=== PATIENT | female | born 1995 | race Caucasian/White ===

== ENCOUNTER 2016-09-04 11:32 | Emergency (ER) | payer BC, OTHER ==
[~2016-09-04] VITALS: Ht 157.5 cm; Wt 81.6 kg
[~2016-09-04 11:32] MED LIST: ACET50TA PO; ANUS2.5C2 TOP; DOCU10ELUD PO; IBUP600T26 PO; MOM30SS PO; PRENTAB66 PO
[2016-09-04 11:47] VITALS: BP 165/93
[2016-09-04] MEDS ORDERED: PENICILLIN V POTASSIUM 500 MG TAB PO ONE (13:15)
[2016-09-04] MEDS ORDERED: PENI50TA GT (13:25)
[2016-09-04] MEDS ORDERED: PERC5TAB6 PO (13:27)
== END 2016-09-04 13:49 | disposition home or self-care (01) ==
LOC: M ED 13:33
DX: K08.89 Other specified disorders of teeth and supporting structures (principal)

== ENCOUNTER 2016-10-09 15:17 | Emergency (ER) | payer OTHER ==
[~2016-10-09] VITALS: Ht 157.5 cm; Wt 87.1 kg
[~2016-10-09 15:17] MED LIST changes: +PENI50TA GT; +PERC5TAB6 PO
[2016-10-09] MEDS ORDERED: PREN1TAB11 PO (15:27)
[2016-10-09] MEDS ORDERED: MACR100C3 PO (16:24)
[2016-10-09 16:34] VITALS: BP 124/67
--- NOTE | 2016-10-10 08:14 | REP ---
REASON: Vaginal bleeding. Multiple sonographic image of the uterus show an anechoic structure in the endometrial cavity with increased echoes surrounding it consistent with a decidual reaction. Within the gestational sac, there is echogenic material consistent with a pole, the mean crown-rump length measurement of which is consistent with a 7 week 0 day gestational age. Based on that, the estimated date of delivery is 05/28/2017. Doppler interrogation of the pole shows the heart rate of 152 beats per minute. There is no evidence of a chorionic or subchorionic abnormality. Evaluation of the maternal adnexal spaces showed no gross abnormalities. A right ovarian corpus luteum cyst was identified. IMPRESSION: Early OB ultrasound as described above. Signed by Eladio Kelly DO 10/10/2016 08:51 A
== END 2016-10-09 16:37 | disposition home or self-care (01) ==
LOC: M ED 15:46
DX: O23.41 Unspecified infection of urinary tract in pregnancy, first trimester (principal); O26.891 Other specified pregnancy related conditions, first trimester; N83.00 Follicular cyst of ovary, unspecified side; Z3A.01 Less than 8 weeks gestation of pregnancy